=== PATIENT | female | born 1965 | race Caucasian/White ===

== ENCOUNTER 2019-05-08 19:14 | Emergency (ER) | payer BC, OTHER ==
[~2019-05-08] VITALS: Ht 157.5 cm; Wt 83.2 kg
[2019-05-08 19:21] VITALS: Ht 157.5 cm; Wt 83.2 kg
[2019-05-08] MEDS ORDERED: SOD CHLORIDE 0.9% 500 ML IV STA (22:28)
[2019-05-08] MEDS ORDERED: LORAZEPAM 2 MG INJ IV ONE (22:30)
[2019-05-08 23:31] VITALS: BP 139/84; PULSE 70; RESP 18
[2019-05-09] MEDS ORDERED: LORA-441 PO (00:46)
--- NOTE | 2019-05-09 01:00 | ERD ---
ER Documentation Chief Complaint Chief Complaint DIZZINESS, WHOLE BODY NUMBNESS X'S 1 DAY HPI This is a very pleasant 53-year female complains of dizziness whole body numbness and anxiety for the whole day. She states that she has had perioral numbness and tingling and felt very anxious. Apparently she is under significant amount of life stress. She denies suicidal homicidal ideation. Denies any focal neurological complaints. Denies any chest pain or palpitations. ROS All systems reviewed and are negative except as per history of present illness. Medications Home Meds Active Scripts Lorazepam* (Ativan*) 0.5 Mg Tablet, 0.5 MG PO Q8H PRN for ANXIETY, #10 TAB Prov:LUIS ALFREDO PORTER 05/09/19 Allergies Allergies: Coded Allergies: No Known Allergy (Unverified , 05/08/19) PMhx/Soc Medical and Surgical Hx: pt denies Medical Hx, pt denies Surgical Hx Hx Alcohol Use: No Hx Substance Use: No Hx Tobacco Use: No Smoking Status: Never smoker Physical Exam Vitals Vital Signs Date Temp Pulse Resp B/P (MAP) Pulse Ox O2 O2 Flow FiO2 Time Delivery Rate 05/08/19 70 18 139/84 99 Room Air 23:31 (102) 05/08/19 98.3 78 18 178/102 99 19:21 (127) Physical Exam Const: No acute distress Head: Atraumatic Eyes: Normal Conjunctiva ENT: Normal External Ears, Nose and Mouth. Neck: Full range of motion. No meningismus. Resp: Clear to auscultation bilaterally Cardio: Regular rate and rhythm, no murmurs Abd: Soft, non tender, non distended. Normal bowel sounds Skin: No petechiae or rashes Back: No midline or flank tenderness Ext: No cyanosis, or edema Neur: Awake and alert Psych: Normal Mood and Affect Result Diagram: 05/08/19225405/08/192254 Results 24 hrs Laboratory Tests Test 05/08/19 22:55 White Blood Count 12.9 10^3/ul Red Blood Count 5.08 10^6/ul Hemoglobin 13.9 g/dl Hematocrit 43.2 % Mean Corpuscular Volume 85.0 fl Mean Corpuscular Hemoglobin 27.4 pg Mean Corpuscular Hemoglobin Concent 32.2 g/dl Red Cell Distribution Width 13.2 % Platelet Count 316 10^3/UL Mean Platelet Volume 10.2 fl Immature Granulocytes % 0.300 % Neutrophils % 82.7 % Lymphocytes % 12.0 % Monocytes % 4.3 % Eosinophils % 0.2 % Basophils % 0.5 % Nucleated Red Blood Cells % 0.0 /100WBC Immature Granulocytes # 0.040 10^3/ul Neutrophils # 10.7 10^3/ul Lymphocytes # 1.6 10^3/ul Monocytes # 0.6 10^3/ul Eosinophils # 0.0 10^3/ul Basophils # 0.1 10^3/ul Nucleated Red Blood Cells # 0.0 10^3/ul Prothrombin Time 13.1 Sec Prothrombin Time Ratio 1.0 INR International Normalized Ratio 0.98 Activated Partial Thromboplast Time 28.5 Sec Sodium Level 142 mmol/L Potassium Level 3.8 mmol/L Chloride Level 108 mmol/L Carbon Dioxide Level 23 mmol/L Anion Gap 11 Blood Urea Nitrogen 14 mg/dl Creatinine 0.62 mg/dl Est Glomerular Filtrat Rate mL/min > 60 mL/min Glucose Level 129 mg/dl Calcium Level 9.5 mg/dl Troponin I < 0.012 ng/ml Current Medications Medications Dose Sig/Lilil Start Time Status Last (Trade) Ordered Route PRN Stop Time Admin Dose Reason Admin Sodium 500 ml @ Q1H STAT 05/08/19 DC 05/08/19 Chloride 500 mls/hr IV 22:28 23:09 05/08/19 23:27 Lorazepam 1 mg ONCE ONCE 05/08/19 DC 05/08/19 (Ativan) IV 22:30 23:08 05/08/19 22:31 Procedures/MDM EKG: Rate/Rhythm: [Normal Sinus Rhythm] QRS, ST, T-waves: [No changes consistent w/ acute ischemia] Impression: [No evidence of ischemia or arrhythmia] Chest X-ray 1V Interpreted by me: Soft Tissue: No acute abnormalities Bones: No acute abnormalities Mediastinum/Cardiac Silhouette/Lungs: [No acute abnormalities] Medical decision make: 53-year-old female but looks to be anxiety related issues. She is given Ativan here in the emergency department with complete resolution of all symptoms. At this point I doubt stroke or cardiac disease. She stable for trial of outpatient management. Of asked her to follow-up with her primary care physician return immediately for any return of symptomology. Departure Diagnosis: Primary Impression: Numbness Condition: Stable Patient Instructions: Anxiety Reaction LUIS ALFREDO PORTER May 09, 2019 01:00
== END 2019-05-09 01:13 | disposition home or self-care (01) ==
LOC: E/R 19:14
DX: R20.0 Anesthesia of skin (principal); R40.2142 Coma scale, eyes open, spontaneous, at arrival to emergency department; R40.2362 Coma scale, best motor response, obeys commands, at arrival to emergency department; R40.2252 Coma scale, best verbal response, oriented, at arrival to emergency department; R07.9 Chest pain, unspecified
CPT/HCPCS: 36415; 70450; 71045; 80048; 84484; 85025; 85610; 85730; 93005; 96374; 99285; J2060; J7040

== ENCOUNTER 2019-09-25 09:18 | Day surgery (SDC) | payer OTHER ==
[~2019-09-25] VITALS: Ht 157.5 cm; Wt 83.8 kg
[~2019-09-25 09:18] MED LIST: BENA20TA4 PO; CALC1TAB94 PO; FOLI-49 PO; LORA-441 PO; MELO15TA30 PO; PRED5TAB PO
[2019-09-25 10:21] VITALS: Ht 157.5 cm; Wt 83.8 kg
[2019-09-25 10:51] VITALS: BP 163/84; PULSE 74; RESP 18
[2019-09-25] MEDS ORDERED: FENTAnyl 50 MCG/ML VIAL ONE (11:31)
[2019-09-25] MEDS ORDERED: MIDAZOLAM 1 MG/ML 2 ML INJ ONE ×2 (11:31)
[2019-09-25 11:45] VITALS: BP 127/72; PULSE 68; RESP 18
== END 2019-09-25 12:21 | disposition home or self-care (01) ==
LOC: GIL 09:18
PROVIDERS: ATTEND Internal Medicine Gastroenterology
DX: Z12.11 Encounter for screening for malignant neoplasm of colon (principal); K64.4 Residual hemorrhoidal skin tags; I10 Essential (primary) hypertension
CPT/HCPCS: 45378; J2250; J3010